=== PATIENT | female | born 1995 | race Asian ===

== ENCOUNTER 2016-11-28 07:49 | Emergency (ER) | payer OTHER ==
[~2016-11-28] VITALS: Ht 157.5 cm; Wt 74.8 kg
[~2016-11-28 07:49] MED LIST: IRON325 MG PO; PRENATAL PO
== END 2016-11-28 09:10 | disposition home or self-care (01) ==
LOC: ED 07:49
DX: H66.93 Otitis media, unspecified, bilateral (principal)
CPT/HCPCS: 99282

== ENCOUNTER 2018-04-14 23:32 | Emergency (ER) | payer OTHER ==
[~2018-04-14] VITALS: Ht 157.5 cm; Wt 74.4 kg
[2018-04-14 23:54] VITALS: TEMP 97.6
[2018-04-15 01:25] VITALS: BP 115/69
== END 2018-04-15 01:25 | disposition home or self-care (01) ==
LOC: ED 23:32
DX: R51 Headache (principal)
CPT/HCPCS: 99282

== ENCOUNTER 2018-05-11 22:57 | Emergency (ER) | payer OTHER ==
[~2018-05-11] VITALS: Ht 157.5 cm; Wt 74.4 kg
[2018-05-11 23:03] VITALS: BP 126/82; TEMP 98.4
== END 2018-05-11 23:29 | disposition home or self-care (01) ==
LOC: ED 22:57
DX: J00 Acute nasopharyngitis [common cold] (principal)
CPT/HCPCS: 99281